=== PATIENT | female | born 1995 | race Caucasian/White ===

== ENCOUNTER → 2018-02-07 | Outpatient (CLI) | payer BC | LOC: BMCIMAGING 09:38 | PROVIDERS: ATTEND Family Medicine | DX: N83.201 Unspecified ovarian cyst, right side (principal); R16.0 Hepatomegaly, not elsewhere classified ==

== ENCOUNTER → 2018-04-10 | Outpatient (CLI) | payer BC | LOC: FIMAGING 10:51 | PROVIDERS: ATTEND Obstetrics & Gynecology | DX: N83.201 Unspecified ovarian cyst, right side (principal) ==